=== PATIENT | female | born 1975 | race Caucasian/White ===

== ENCOUNTER 2024-01-02 09:14 | Emergency (ER) | payer OTHER ==
[~2024-01-02] VITALS: Ht 165.1 cm; Wt 69.0 kg
[2024-01-02 09:17] VITALS: O2SAT 98
[2024-01-02] MEDS: HYDROCODONE/ACETAMINOPHEN 5/325MG TABLET PO ONE (11:19)
[2024-01-02 13:15] VITALS: BP 157/82; PULSE 107; RESP 20; TEMP 98.2
== END 2024-01-02 13:50 | disposition home or self-care (01) ==
LOC: ER 09:14
DX: S02.31XA Fracture of orbital floor, right side, initial encounter for closed fracture (principal); H50.631 Inferior rectus muscle entrapment, right eye; I47.10 Supraventricular tachycardia, unspecified; Y08.89XA Assault by other specified means, initial encounter; Y93.89 Activity, other specified; Y92.89 Other specified places as the place of occurrence of the external cause; Y99.8 Other external cause status
CPT/HCPCS: 70486; 81025; 99284